=== PATIENT | male | born 1970 | race Caucasian/White ===

== ENCOUNTER 2016-12-15 11:10 | Outpatient (CLI) | payer OTHER ==
[2016-12-15 11:57] LABS: BASOPHILS % 0.5 (0.0-1.5); EOSINOPHILS % 4.6 % (0.0-6.8); LYMPHOCYTES # 1.5 # k/uL (0.6-4.0); MEAN CORPUSCULAR HEMOGLOBIN 29.1 pg (28.0-34.0); MONOCYTES # 0.2 # k/uL (0.0-0.9); NEUTROPHILS # 1.8 # k/uL (1.4-7.7)
[2016-12-15 12:26] LABS: eGFR (African) > 60; eGFR (Non-African) > 60
--- NOTE | 2016-12-15 15:28 | OP Clinic Progress Note ---
REFERRING PHYSICIAN: Dr. Carolynn Toure REASON FOR VISIT: Gerson Medina returns for follow up of ankylosing spondylitis, longstanding, having previously failed disease-modifying agents. He has required Humira 40 mg subcutaneous weekly. He has been on this for over 5 or 6 years. He continues to have pain in his neck and he has noted some loss of flexion over his lumbar spine as well. He has had no peripheral joint involvement and he has had no fevers, chills, sweats, chest pain, shortness of breath, cough or wheezing. He has had no red eye. No skin rashes. No numbness or tingling in his extremities. The only other issue is his hyperlipidemia which was last looked at about 8 months ago. He has tried to change his diet. He is, at this time, still not wanting to start any medications. REVIEW OF SYSTEMS: As above. PHYSICAL EXAMINATION: GENERAL: On exam, he is in no acute distress. VITAL SIGNS: Weight: 187 pounds. HT: 5 feet 10 inches. T: 97.1, R: 12, heart rate 70, BP: 150/79. HEENT: Sclerae are anicteric. Conjunctivae are pink. No stomatitis or glossitis. LUNGS: Clear HEART: Regular rhythm. ABDOMEN: Soft. VASCULAR: No edema or cyanosis. PERIPHERAL JOINTS: DIPs, PIPs, MCPs, wrists, elbows, knees, ankles, and feet are unremarkable. MUSCULOSKELETAL: He has a 5 degree anterior flexion. No extension. A 5 degree right and left rotation and about a 5 degree right and left lateral flexion. He has no lumbar flexion. SKIN: Unremarkable. IMPRESSION: 1. Ankylosing spondylitis. I am stopping his Humira. I would like the patient to be on Cosentyx 150 mg subcutaneous every 4 weeks. This may deem a letter of medical necessity. 2. Hyperlipidemia. PLAN: We will update his labs with a CBC, CMP, sedimentation rate, CRP, fasting lipid profile, and QuantiFERON Gold test. I will review his labs next week. He is going to pass by my office for Cosentyx samples. We will stress the importance of lipid management for it is an added risk factor of cardiovascular disease. Thank you very much. cc: Dr. Carolynn DELACRUZ
== END 2016-12-15 11:11 ==
LOC: RHEU 11:10
PROVIDERS: ATTEND Internal Medicine
DX: M95.9 Acquired deformity of musculoskeletal system, unspecified (principal); Z79.899 Other long term (current) drug therapy
CPT/HCPCS: 36415; 80053; 80061; 85025; 85651; 86140; 86480; 99214

== ENCOUNTER → 2017-08-17 | Outpatient (CLI) | payer OTHER ==
[2017-08-17 11:32] LABS: BASOPHILS % 0.5 (0.0-1.5); EOSINOPHILS % 4.4 % (0.0-6.8); MEAN CORPUSCULAR HEMOGLOBIN 27.6 pg (28.0-34.0); MONOCYTES % 6.3 % (0.0-11.0); NEUTROPHILS # 4.3 # k/uL (1.4-7.7)
[2017-08-17 11:53] LABS: eGFR (African) > 60; eGFR (Non-African) > 60
--- NOTE | 2017-08-17 14:06 | OP Clinic Progress Note ---
REASON FOR VISIT: Gerson Medina returns for follow up. This is a gentleman I have been following for probably about 8 years. He has ankylosing spondylitis. He initially was treated with Humira subcutaneously 40 mg every other week which we quickly bumped up to subcutaneously weekly. On that, he did well for at least 5 or 6 years. His insurance company, [employer] which he gets through his work at [employer], would not permit that. So, we switched him to Cosentyx and he is doing quite poorly. His pain is 7 over 10. He thinks he has lost more cervical range of motion by at least 20%. He is limping because of ankle pain. He is having difficulty using his hands because of bilateral wrist pain. Morning stiffness is over 3 to 4 hours. He otherwise has had no fevers, chills, sweats, chest pain, shortness of breath , cough, wheezing, nausea, or vomiting. PAST MEDICAL HISTORY: As above, as well as hyperlipidemia. PHYSICAL EXAMINATION: VITAL SIGNS: Pain is 7 over 10. T: 96.9, R: 20, heart rate of 60, BP: 130/70. HEENT: Sclerae are anicteric. Conjunctivae are pink. No stomatitis or glossitis. LUNGS: Clear bilaterally with no crackles or wheezing. HEART: Regular rhythm. ABDOMEN: Soft and nontender. VASCULAR: No edema or cyanosis. PERIPHERAL JOINTS: DIPs, PIPs, and MCPs are unremarkable. Both wrists are tender. He has decreased flexion and extension. Structural Analysis Engineer is 4/5. Elbows and shoulders are unremarkable. The right ankle is tender with a slight limp. MTPs are unremarkable. Knees have no effusions. He has markedly diminished lumbar spine to flexion and extension. He has 5 degrees of cervical anterior flexion and maybe 5 degrees of extension. Rotation is limited to about 20 degrees bilaterally. DIAGNOSTIC STUDIES: Last labs from November were reviewed. QuantiFERON-TB Gold was negative. CBC, CMP, and sedimentation rate were normal. IMPRESSION: Ankylosing spondylitis. This gentleman has failed Cosentyx. PLAN: I am at least resuming Humira. We will proceed with 40 mg subcutaneously every other week. If he should fail to improve, we will increase it to weekly. This may need a letter of medical necessity. Thank you very much. [facility] H[facility]ITALKassidy
== END ==
LOC: RHEU 10:47
PROVIDERS: ATTEND Internal Medicine
DX: M45.0 Ankylosing spondylitis of multiple sites in spine (principal)
CPT/HCPCS: 36415; 80053; 85025; 85651; 86140; 99213; 99214